=== PATIENT | male | born 1945 | race Caucasian/White ===

== ENCOUNTER 2018-05-03 07:55 | Inpatient (IN) | payer OTHER ==
[~2018-05-03] VITALS: Ht 180.3 cm; Wt 95.2 kg
[2018-05-03 08:22] VITALS: BP 147/84
[2018-05-03] MEDS ORDERED: METH750T87 PO (08:27)
[2018-05-03] MEDS ORDERED: HYDR-3307 PO (08:27)
[2018-05-03] MEDS ORDERED: METH4TAB2 PO (08:29)
[2018-05-03] MEDS ORDERED: PLEASE ENTER HEIGHT AND WEIGHT MC SCH (08:30)
[2018-05-03] MEDS: LACTATED RINGERS 1,000 ML IV SCH ×2 (08:45→09:17)
[2018-05-03] MEDS ORDERED: LISI-170 PO (08:48)
[2018-05-03] MEDS ORDERED: ASPI-515 PO (08:48)
[2018-05-03] MEDS ORDERED: METO-95 PO (08:48)
[2018-05-03] MEDS ORDERED: ACETAMINOPHEN 500 MG TABLET PO ONE (09:00)
[2018-05-03] MEDS ORDERED: OxyconTIN ER 10 MG TAB.ER PO ONE (09:00)
[2018-05-03] MEDS ORDERED: GABAPENTIN 300 MG CAPSULE PO ONE (09:00)
[2018-05-03] MEDS ORDERED: BACITRACIN 50,000 UNIT ONE (10:07)
[2018-05-03] MEDS ORDERED: BUPIVACAINE/PF 0.5% ONE (10:07)
[2018-05-03] MEDS ORDERED: THROMBIN 5,000 UNIT VIAL TP ONE (10:07)
[2018-05-03] MEDS ORDERED: FENTANYL PF 250 MCG/5ML ONE (10:31)
[2018-05-03] MEDS ORDERED: MIDAZOLAM 1 MG/ML, 2ML ONE (10:31)
[2018-05-03] MEDS ORDERED: PROPOFOL 10 MG/ML, 20ML ONE (10:33)
[2018-05-03] MEDS ORDERED: ROCURONIUM 10MG/ML,5ML ONE (10:34)
[2018-05-03] MEDS ORDERED: NEOSTIGMINE 1 MG/ML, 10ML ONE (10:35)
[2018-05-03] MEDS ORDERED: GLYCOPYRROLATE 0.4 MG/2 ML, 2ML ONE (10:35)
[2018-05-03] MEDS ORDERED: CEFAZOLIN 1,000 MG ONE ×2 (10:36)
[2018-05-03] MEDS ORDERED: WATER-INJECTION,STERILE 10 ML IV ONE (10:36)
[2018-05-03] MEDS ORDERED: PHENYLEPHRINE 10 MG/ML ONE (10:53)
[2018-05-03] MEDS ORDERED: PROMETHAZINE 12.5 MG SUPP PR PRN (11:00)
[2018-05-03] MEDS ORDERED: PROMETHAZINE 25 MG SUPP PR PRN (11:00)
[2018-05-03] MEDS ORDERED: PROMETHAZINE 25 MG/ML, 1ML IV PRN (11:00)
[2018-05-03] MEDS ORDERED: ONDANSETRON 2MG/ML, 2ML IV PRN (11:00)
[2018-05-03] MEDS ORDERED: hydrALAzine 20 MG/ML, 1ML IV PRN (11:00)
[2018-05-03] MEDS ORDERED: MORPHINE SULFATE 4 MG/ML, 1ML IVPush PRN (11:00)
[2018-05-03] MEDS ORDERED: FENTANYL PF 100 MCG/2ML IV PRN (11:00)
[2018-05-03] MEDS ORDERED: LABETALOL 5MG/ML, 20ML IV PRN (11:00)
[2018-05-03] MEDS ORDERED: MEPERIDINE/PF 25MG/0.5ML IVPush PRN (11:00)
[2018-05-03] MEDS ORDERED: HYDROmorphone 1 MG/ML, 1ML IV PRN (11:00)
[2018-05-03] MEDS ORDERED: ONDANSETRON ODT 8 MG PO PRN (11:00)
[2018-05-03] MEDS ORDERED: OXYcodone 5 MG/5 ML ORAL.SOL UDC PO PRN (11:00)
[2018-05-03] MEDS ORDERED: EPINEPHRINE 1 MG/ML, 1ML INFIL ONE (11:31)
[2018-05-03] MEDS ORDERED: DIPHENHYDRAMINE 50 MG CAPSULE PO PRN (13:00)
[2018-05-03] MEDS ORDERED: ONDANSETRON 2MG/ML, 2ML IVPush PRN (13:00)
[2018-05-03] MEDS ORDERED: PROMETHAZINE 25 MG/ML, 1ML IM PRN (13:00)
[2018-05-03] MEDS ORDERED: CYCLOBENZAPRINE 10 MG TABLET PO PRN (13:00)
[2018-05-03] MEDS: DEXAMETHASONE 4 MG/ML, 1ML IVPush SCH ×2 (13:00→19:13)
[2018-05-03] MEDS: NS + 20MEQ KCL 1,000 ML IV SCH ×2 (13:00→16:46)
[2018-05-03] MEDS ORDERED: OXYcodone/APAP 5/325MG TABLET PO PRN (13:00)
[2018-05-03] MEDS: LABETALOL 5MG/ML 40ML VIAL IVPush SCH ×2 (13:00→20:32)
[2018-05-03] MEDS ORDERED: PHARMACY MAY ADJ FOR RENAL FX MC PRN (13:00)
[2018-05-03] MEDS ORDERED: BISACODYL 10 MG SUPP PR PRN (13:00)
[2018-05-03] MEDS ORDERED: MAGNESIUM HYDROXIDE 8%, 30ML UDC PO PRN (13:00)
[2018-05-03] MEDS ORDERED: SENNA/DOCUSATE TABLET PO PRN (13:00)
[2018-05-03] MEDS ORDERED: DIPHENHYDRAMINE 50 MG/ML, 1ML IVPush PRN (13:00)
[2018-05-03] MEDS ORDERED: morphine SULFATE 10 MG/ML, 1ML IVPush PRN (13:00)
[2018-05-03] MEDS: HYDROcodone/APAP 5/325 TABLET PO PRN ×2 (16:51→20:58)
[2018-05-03 18:51] VITALS: BP 134/79
[2018-05-03] MEDS: CEFAZOLIN PMX 1GM/50ML 50 ML IVPB SCH (19:14)
[2018-05-03] MEDS: SODIUM CHLORIDE FLUSH 10ML SYR IVF SCH (20:32)
[2018-05-04 01:47] VITALS: BP 109/68
[2018-05-04] MEDS ORDERED: CEFAZOLIN PMX 1GM/50ML 50 ML ONE (02:56)
[2018-05-04] MEDS: CEFAZOLIN PMX 1GM/50ML 50 ML IVPB SCH (02:58)
[2018-05-04] MEDS: DEXAMETHASONE 4 MG/ML, 1ML IVPush SCH ×2 (02:59→09:11)
[2018-05-04] MEDS: HYDROcodone/APAP 5/325 TABLET PO PRN (02:59)
[2018-05-04] MEDS: LABETALOL 5MG/ML 40ML VIAL IVPush SCH (04:21)
[2018-05-04 06:41] VITALS: BP 112/70
[2018-05-04] MEDS ORDERED: METOPROLOL SUCCINATE 100 MG TAB.ER.24H PO SCH (09:00)
[2018-05-04] MEDS ORDERED: ENOXAPARIN 40 MG/0.4 ML SQ SCH (09:00)
[2018-05-04] MEDS ORDERED: LISINOPRIL 20 MG TABLET PO SCH (09:00)
[2018-05-04 09:10] VITALS: BP 132/95
[2018-05-04] MEDS: SODIUM CHLORIDE FLUSH 10ML SYR IVF SCH (09:12)
[2018-05-04] MEDS ORDERED: FAMO-79 PO (11:37)
[2018-05-04] MEDS ORDERED: METH4TAB PO (11:37)
== END 2018-05-04 12:24 | disposition home or self-care (01) | DRG 472 ==
LOC: ORIP 07:55 → 4NOR 13:33
PROVIDERS: ADMIT Neurological Surgery; ATTEND Neurological Surgery
PROC: 0RH108Z Insertion of Spacer into Cervical Vertebral Joint, Open Approach (ICD-10-PCS; 2018-05-03)
PROC: 0RG20A0 Fusion of 2 or more Cervical Vertebral Joints with Interbody Fusion Device, Anterior Approach, Anterior Column, Open Approach (ICD-10-PCS; 2018-05-03)
PROC: 0RB30ZZ Excision of Cervical Vertebral Disc, Open Approach (ICD-10-PCS; principal; 2018-05-03 10:30)
DX: M48.02 Spinal stenosis, cervical region (principal); M50.021 Cervical disc disorder at C4-C5 level with myelopathy; G95.89 Other specified diseases of spinal cord; G56.00 Carpal tunnel syndrome, unspecified upper limb; M50.121 Cervical disc disorder at C4-C5 level with radiculopathy; I10 Essential (primary) hypertension; E78.5 Hyperlipidemia, unspecified
CPT/HCPCS: 72040; C1713; J0171; J0690; J1100; J1650; J2250; J2704; J2710; J3010; J3480; J3490; C1762; J2370; J7120